=== PATIENT | male | born 1980 | race Hispanic/Latino ===

== ENCOUNTER 2020-03-10 17:31 | Observation (INO) | payer MEDICAID ==
[~2020-03-10] VITALS: Ht 160 cm; Wt 63.0 kg
[2020-03-10] MEDS ORDERED: ACETAMINOPHEN EXTRA STRENGTH 500 MG TABLET ONE (17:57)
[2020-03-10] MEDS ORDERED: LACTATED RINGERS 1000ML 1,000 ML IV ONE (17:57)
[2020-03-10] MEDS ORDERED: TETANUS/DIPHTHERIA TOXOID [ADULT] 0.5 ML VIAL IM ONE (17:58)
[2020-03-10 18:30] LABS: BASOPHILS % (AUTO) 0.4 % (0.0-5.0); EOSINOPHILS % (AUTO) 0.8 % (0.0-8.0); HEMATOCRIT 40.4 % (42-54); LYMPHOCYTES % (AUTO) 15.7 % (21.0-51.0); MEAN CORPUSCULAR HEMOGLOBIN 31.5 pg (27.0-33.0); MEAN CORPUSCULAR HGB CONC 33.7 g/dL (32.0-36.0); MEAN CORPUSCULAR VOLUME 93.5 fL (79-99); MONOCYTES % (AUTO) 5.3 % (3.0-13.0); NEUTROPHILS % (AUTO) 77.6 % (40.0-77.0); PLATELET COUNT (AUTO) 240 K/uL (130-400); RED BLOOD CELL COUNT(AUTO) 4.32 MIL/uL (4.50-6.20); RED CELL DISTRIBUTION WIDTH 14.5 % (11.0-15.5); WHITE BLOOD COUNT (AUTO) 11.3 K/uL (4.8-10.8)
[2020-03-10 18:41] LABS: CARBON DIOXIDE 27 mmol/L (21-32); CHLORIDE 100 mmol/L (101-111); CREATININE 1.1 mg/dL (0.5-1.5); GLOMERULAR FILTR. RATE CALC 78 mL/min (>60); GLUCOSE,RANDOM 66 mg/dL (70-105); POTASSIUM 3.7 mmol/L (3.5-5.1); SODIUM SERUM 138 mmol/L (136-145); UREA NITROGEN, BLOOD 27 mg/dL (7-18)
[2020-03-10 18:44] LABS: INR 0.92 (0.85-1.15); PARTIAL THROMBOPLASTIN TIME 19.2 SEC (26.3-35.5)
[2020-03-10 18:55] LABS: ALANINE AMINOTRANSFERASE 30 U/L (12-78); ALBUMIN 3.9 g/dL (3.5-5.0); ALCOHOL, BLOOD < 3 mg/dL (0-10); ASPARTATE AMINOTRANSFERASE 35 U/L (10-37); BILIRUBIN,TOTAL 0.5 mg/dL (0.2-1.0); TOTAL PROTEIN, SERUM 8.4 g/dL (6.0-8.3)
[2020-03-10 18:56] LABS: CREATINE KINASE, TOTAL 590 U/L (21-232)
[2020-03-10 19:26] LABS: APPEARANCE,URINE Clear (CLEAR); BILIRUBIN,URINE Negative (NEGATIVE); COLOR,URINE Yellow (YELLOW); GLUCOSE, URINE (UA) Negative (NEGATIVE); KETONES,URINE >=80 mg/dL (NEGATIVE); LEUKOCYTE ESTERASE ,URINE Negative (NEGATIVE); NITRATE,URINE Negative (NEGATIVE); OCCULT BLOOD,URINE Negative (NEGATIVE); PH,URINE 5.5 (5.0-8.0); PROTEIN,URINE POS 1+ mg/dL (NEGATIVE)
[2020-03-10 19:34] LABS: AMPHET/METH SCREEN,URINE NEGATIVE (NEGATIVE); BARBITURATE SCREEN, URINE NEGATIVE (NEGATIVE); BENZODIAZEPINES SCREEN,URINE NEGATIVE (NEGATIVE); CANNABINOID SCREEN,URINE POSITIVE (NEGATIVE); COCAINE SCREEN,URINE POSITIVE (NEGATIVE); OPIATE SCREEN,URINE NEGATIVE (NEGATIVE); PHENCYCLIDINE SCREEN,URINE NEGATIVE (NEGATIVE)
[2020-03-10 19:37] LABS: BACTERIA,URINE Few /HPF (None Seen); MUCUS,URINE Few LPF (None Seen); RBC,URINE 0-1 /HPF (0-1); SQUAMOUS EPITHELIAL CELL,UR 0-2 /HPF (0-2); WBC,URINE 0-1 /HPF (0-1)
[2020-03-10] MEDS ORDERED: ACETAMINOPHEN 325 MG TAB PO PRN (21:45)
[2020-03-10] MEDS ORDERED: ONDANSETRON HCL 4 MG/2 ML VIAL IVP PRN (21:45)
[2020-03-10 23:54] VITALS: BP 106/51
[2020-03-11] MEDS: LACTATED RINGERS 1000ML 1,000 ML IV SCH ×2 (00:11→04:25)
[2020-03-11 03:43] VITALS: BP 105/71
[2020-03-11 04:43] LABS: HEMATOCRIT 34.9 % (42-54); MEAN CORPUSCULAR HGB CONC 32.7 g/dL (32.0-36.0); MEAN CORPUSCULAR VOLUME 94.8 fL (79-99); RED BLOOD CELL COUNT(AUTO) 3.68 MIL/uL (4.50-6.20); RED CELL DISTRIBUTION WIDTH 14.7 % (11.0-15.5); WHITE BLOOD COUNT (AUTO) 7.9 K/uL (4.8-10.8)
[2020-03-11 04:59] LABS: MAGNESIUM 1.9 mg/dL (1.80-2.40); PHOSPHORUS 4.1 mg/dL (2.5-4.9); POTASSIUM 3.9 mmol/L (3.5-5.1)
[2020-03-11 07:59] VITALS: BP 96/55
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
[2020-03-11] MEDS ORDERED: PANTOPRAZOLE SODIUM 40 MG TABLET.DR PO SCH (09:00)
--- NOTE | 2020-03-11 11:22 | NUR ---
THREATENING TO LEAVE IF HE IS NOT ALLOWED TO GO OUT TO SMOKE. ENRIQUE MCCULLOUGH HERE, REVIEWED HIS LABS AND SAW PT. PLAN TO DISCHARGE.
[2020-03-11 11:39] VITALS: BP 102/58
--- NOTE | 2020-03-11 11:53 | NUR ---
[facility] CM DC Fireman Helper met with pt discussed dc plans. Pt is mostly independent prior to admission, lives at home w/provider Bertha Baca. Pt has a provider 20hrs/wk. Denies any equipments/services. Feels safe to go back home, provider able to assist with transportation and needs as necessary. DC plan to home once stable. CM to continue to follow up. Addendum: 03/11/20 at 1155 by JOHN CHDAWICK LVN Amended: Links added.
--- NOTE | 2020-03-11 13:00 | NUR ---
DISCHARGED NOW USING TEACH BACK, NOT INTERESTED IN INST. BEING GIVEN. HAS NO TRANSPORTATION BUT STATES HE LIVES CLOSE BY AND WALKS WHEREVER HE NEEDS TO GO. SALINE LOCK REMOVED. SIGNED DISCHARGE PAPERS BUT DID NOT WANT THE PACKET. JUST LEFT IT IN ROOM
== END 2020-03-11 13:00 | disposition home or self-care (01) ==
LOC: EDH 17:31 → EDHIP 17:32 → 3CH 21:50
PROVIDERS: ADMIT Internal Medicine Critical Care Medicine; ATTEND Internal Medicine Critical Care Medicine
DX: E86.0 Dehydration (principal); F06.4 Anxiety disorder due to known physiological condition; R64 Cachexia; D64.9 Anemia, unspecified; F10.129 Alcohol abuse with intoxication, unspecified; F19.10 Other psychoactive substance abuse, uncomplicated; F17.200 Nicotine dependence, unspecified, uncomplicated; Z23 Encounter for immunization; V18.4XXA Pedal cycle driver injured in noncollision transport accident in traffic accident, initial encounter; Y93.55 Activity, bike riding; Y92.89 Other specified places as the place of occurrence of the external cause
CPT/HCPCS: 36415 ×2; 70450; 71045; 72072; 72100; 72125; 73562; 80048; 80053; 80305; 81001; 82550 ×2; 83735; 84100; 84484 ×2; 85025; 85027; 85610; 85730; 90471; 90714; 93005; 96360; 96361; 99285; G0378 ×16; J7120 ×3